=== PATIENT | female | born 2000 | race Caucasian/White ===

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

== ENCOUNTER 2022-03-24 17:39 | Emergency (ER) | payer OTHER, SELFPAY ==
[2022-03-24 17:44] VITALS: BP 123/82; PULSE 83; RESP 18; TEMP 36.8; O2SAT 98; BMI 34.0
[2022-03-24 18:13] VITALS: TEMP 37
--- NOTE | 2022-03-24 18:36 | DI.US.S_ITS ---
PROCEDURE: US PELVIC COMPLETE INDICATIONS: PAIN TECHNIQUE: Real-time scanning was performed of the pelvic organs, with image documentation. Additional endovaginal scanning was necessary due to incomplete visualization of the adnexal and endometrial structures by transabdominal scanning. COMPARISON: [facility], US, US PELVIC COMPLETE, 05/23/2021, 14:11. FINDINGS: Uterus: Uterus is anteverted and normal in size at 7.1 x 3.7 x 4.9 cm. The myometrium is homogeneous. The endometrium measures 8 mm combined thickness. Eighty in expected position in the endometrial canal. Ovaries: The right ovary measures 1.7 x 1.4 x 3.0 cm, with a calculated ovarian volume of 3.7 cc. The left ovary measures 3.3 x 3.4 x 2.0 cm, with a calculated ovarian volume of 12.2 cc. A 2.8 cm simple cyst is seen in the left ovary. Less than 12 follicles can be seen in each ovary. Other: No pathologic free abdominal or pelvic fluid. IMPRESSION: 1. No acute sonographic abnormality in the pelvis. Intrauterine device is seen in expected position. 2. Left ovarian dominant follicle measures 2.8 cm. We strive to produce accurate, complete, and clear reports of imaging services. To assist us in improving patient care, this report was composed using standard report templates and voice recognition software. Therefore, it may contain abnormal punctuation, insertions and/or omissions. Occasional wrong-word or sound-alike substitutions may occur. Though we review the report and make efforts to correct it, we do recommend that the report be read carefully in proper context to recognize any text inaccuracies. Dictated by: Rafael Hook M.D. on 03/24/2022 at 19:48 Approved by: Rafael Hook M.D. on 03/24/2022 at 19:50
--- NOTE | 2022-03-24 18:47 | ED_ITS ---
HPI - Female Genitourinary General Chief complaint: Urogenital-Female Stated complaint: bad pain on rt side, pelvic pain Time Seen by Provider: 03/24/22 18:19 Source: patient Mode of arrival: Ambulatory History of Present Illness HPI Narrative: This is a 22-year-old female with history of endometriosis, she has a IUD in place which is hormonal, history of pelvic pain she sees Dr. Roxana ROGERS for her endometriosis. She presents to the emergency department today for right- sided pelvic pain which has been worsening, she endorses a history of bacterial vaginosis and UTIs, denies any dysuria, states that she has vaginal odor and right-sided pelvic pain with concern for ovarian cyst. She endorses feeling bloated which is consistent with her prior flares of endometriosis. She also has a history of fibromyalgia. States that she takes ibuprofen typically at home for her pain. She denies any vaginal bleeding, states that she does not have a regular menstrual cycle so she does not remember when her last menstrual period was. She has never been , denies any new sexual partners recently or concern for STI. Related Data Home Medications Medication Instructions Recorded Confirmed fluoxetine 20 mg capsule 20 mg PO DAILY 05/23/21 05/23/21 ibuprofen 600 mg tablet 600 mg PO TID PRN Pain (Scale 05/23/21 05/23/21 Score 4-6) Previous Rx's Medication Instructions Recorded hydrocodone 5 mg-acetaminophen 325 1 tab PO Q6H PRN pain #10 tabs 05/23/21 mg tablet ketorolac 10 mg tablet 10 mg PO TID PRN pain 5 days #20 03/24/22 tabs metronidazole 1.3 % (65 mg/5 gram) 1 appful vaginal BEDTIME 1 dose #5 03/24/22 vaginal gel grams metronidazole 500 mg tablet 500 mg PO BID 7 days #14 tabs 03/24/22 Allergies Allergy/AdvReac Type Severity Reaction Status Date / Time Sulfa (Sulfonamide Allergy Rash Verified 03/24/22 17:48 Antibiotics) Review of Systems Review of Systems Narrative: Review of systems is negative for acute abnormalities unless otherwise noted in HPI Patient History alcohol intake frequency: 0-2 drinks per day Last Alcoholic Drink: none Substance Use Type: does not use Exam Narrative Exam Narrative: Reviewed vitals signs and nursing notes. General: cooperative, comfortable, in no acute distress, well groomed HEENT: symmetrical facial expressions, moist mucous membranes Cardiovascular: regular rate and rhythm, no peripheral edema, warm extremities Respiratory: normal effort, able to speak in complete sentences, without wheezing, stridor, or abnormal breath sounds. No retractions or tachypnea. GI: abdomen soft, nontender to palpation, nondistended, without masses, rebound tenderness or exquisite tenderness with exam. Abdomen is distended, nontender to palpation. MSK: moves all extremities, neurovascularly intact, no weakness, normal tone : Mild odor, vaginal discharge is white, thick, she has tenderness to the right ovary with palpation, no tenderness on the left, Skin: brisk capillary refill, without pallor or erythema Neuro: normal speech and cognition, A&O x3, ambulatory, clear speech Psych: mental status is grossly normal, congruent mood, normal affect, pleasant and cooperative Initial Vital Signs Initial Vital Signs: Vital Signs Temperature 98.3 F 03/24/22 17:44 Pulse Rate 83 03/24/22 17:44 Respiratory Rate 18 03/24/22 17:44 Blood Pressure 123/82 03/24/22 17:44 Pulse Oximetry 98 03/24/22 17:44 Oxygen Delivery Method 03/24/22 17:44 Course Orders Ordered: ED Orders 03/24/22 18:09 Chlamydia Gonorrhea PCR -URINE Stat 03/24/22 18:30 Wet Prep Tric BV Kay Stat 03/24/22 18:36 US pelvic complete Stat 03/24/22 19:47 Urine Microscopic Stat Discontinued Medications Hydrocodone Bitart/Acetaminophen (Hydrocodone/Acet 5/325 Tablet) 1 tab PO NOW ONE Stop: 03/24/22 18:37 Last Admin: 03/24/22 18:55 Dose: 1 tab Documented By: ALLAN Ketorolac Tromethamine (Ketorolac 30 Mg/Ml Vial) 30 mg IM NOW ONE Stop: 03/24/22 18:37 Last Admin: 03/24/22 18:55 Dose: 30 mg Documented By: ALLAN Metronidazole (Metronidazole 500 Mg Tablet) 500 mg PO NOW ONE Stop: 03/24/22 19:35 Last Admin: 03/24/22 19:53 Dose: 500 mg Documented By: MAHESH Vital Signs Vital signs: Vital Signs - 8 hr 03/24/22 17:44 03/24/22 18:13 03/24/22 19:53 Temperature 98.3 F 98.6 F Pulse Rate 83 83 Respiratory Rate 18 16 Blood Pressure 123/82 123/87 Pulse Oximetry 98 96 Oxygen Delivery Method Room Air Room Air MDM - Female Genitourinary Lab Data Lab results narrative: [facility] CLIA ID [id number] [address] [place] [address], [id number] RUN DATE: 03/24/22 Specimen Inquiry PAGE 1 RUN TIME: 1906 Name: Candice Burns Age/Sex: 21/F Attend Dr: Staci Colunga D.O. Unit#: [id number] : 2000Location: ED Re05/23/21 Disch: Status: DEP ER SPEC #: [id number] JACKY: 05/23/21 STATUS: COMP REQ #: [id number] SPDESC: RECD: 05/23/[address]: Staci Colunga D.O. SOURCE: Vaginal ENTR: 05/23/[address]: Gustavo Mata MD FAX TO: ORDERED: Wet Prep, GENITAL Cx Procedure Result Verified Site Wet Prep Tric BV Kay Final 05/23/211752 White blood cells Moderate WBCs Clue cells: Few Yeast: None seen Trichomonas: None seen Gram Stain Final 05/24/21- 444 White blood cells No WBC seen Mixed Genital Rasta Mixed Genital Rasta Genital Culture Final 05/26/21- 835 Genital Rasta Light growth - Mixed genital rasta Genital Comment No N.gonorrhea or S.agalactiae isolated Labs: Point of Care Testing Test Results Negative Urine Dip Bedside Urine Glucose Negative Bedside Urine Bilirubin - Negative Bedside Urine Ketone - Negative Urine Specific Guin 1.020 Bedside Urine Occult Blood - Negative Bedside Urine pH 6.0 Bedside Urine Protein - Negative Bedside Urine Urobilinogen - Negative Bedside Urine Nitrite - Negative Bedside Urine Leukocytes - Negative Esterase Imaging Data US - abdomen: Radiologist's Impression: PROCEDURE:? US PELVIC COMPLETE ? INDICATIONS:? PAIN ? TECHNIQUE:? Real-time scanning was performed of the pelvic organs, with image documentation.? Additional endovaginal scanning was necessary due to incomplete visualization of the adnexal and endometrial structures by transabdominal scanning.? ? COMPARISON:? [facility], US, US PELVIC COMPLETE, 05/23/2021, 14:11. ? FINDINGS:? ?? Uterus:? Uterus is anteverted and normal in size at 7.1 x 3.7 x 4.9 cm. The myometrium is homogeneous. ? The endometrium measures 8 mm combined thickness.? Eighty in expected position in the endometrial canal. ? Ovaries:? The right ovary measures 1.7 x 1.4 x 3.0 cm, with a calculated ovarian volume of 3.7 cc. The left ovary measures 3.3 x 3.4 x 2.0 cm, with a calculated ovarian volume of 12.2 cc.? A 2.8 cm simple cyst is seen in the left ovary.? Less than 12 follicles can be seen in each ovary.? ? Other:? No pathologic free abdominal or pelvic fluid. ? ? IMPRESSION:? 1. No acute sonographic abnormality in the pelvis.? Intrauterine device is seen in expected position. 2. Left ovarian dominant follicle measures 2.8 cm.? ? We strive to produce accurate, complete, and clear reports of imaging services. To assist us in improving patient care, this report was composed using standard report templates and voice recognition software. Therefore, it may contain abnormal punctuation, insertions and/or omissions. Occasional wrong-word or sound-alike substitutions may occur. Though we review the report and make efforts to correct it, we do recommend that the report be read carefully in proper context to recognize any text inaccuracies. ? ? Dictated by: Rafael Hook M.D. on 03/24/2022 at 19:48 ? ? Approved by: Rafael Hook M.D. on 03/24/2022 at 19:50 ? MDM Narrative Medical decision making narrative: This is a 22-year-old female presents to the emergency department complaining of right-sided pelvic pain, history of endometriosis, ovarian cyst, bacterial vaginosis and UTIs with a hormonal IUD in place. Today on wet prep her sample was positive for clue cells, her urine sample did not show any signs of infection, urine gonorrhea and chlamydia are pending via PCR. She has a left ovarian cyst on ultrasound, no cyst on the right. Left ovarian dominant follicle measures 2.8 cm, no acute sonographic abnormality in the pelvis, intrauterine device is seen in the expected position. The myometrium is homogeneous, endometrium measures 8 mm combined thickness, less than 12 follicles can be seen any ovary. Patient was given Toradol in the emergency department, discussed clinical treatment of her vaginal odor with [place], she was given 1 dose in the emergency department, encouraged to follow-up with her OBGYN for potentially a pelvic MRI to determine the extensiveness of her endometriosis. Encouraged her to use stool softeners to help reduce her bloating, and ovarian cyst pain. Patient is appropriate and amenable to discharge home. Vital signs are stable on repeat examination is unremarkable. Patient has been informed of results. Patient has been given strict return to ER precautions for any new or worsening symptoms. Patient understands to follow up closely with outpatient providers as instructed. Patient understands plan and agrees to discharge home. All questions and concerns answered at this time. Discharge Plan Departure Patient Disposition: Home Clinical Impression: Endometriosis, Pelvic pain, Bacterial vaginal infection Instructions: Bacterial Vaginosis, DI for Endometriosis, DI for Ovarian Cyst Activity Restrictions/Additional Instructions: *You have been diagnosed with a simple cyst on the left ovary which is not dangerously large, no cyst on the right, the wet mount was positive for bacterial vaginosis, I have given you oral pills to help treat this as well as intravaginal treatment, hopefully between needs to it should take care of this for you. If you have ongoing bloating and lower abdominal pain, please follow- up with Dr. Schmidt for a test of cure and for a retest of your urine. Please use Toradol as needed for your pain, this is a little bit stronger than ibuprofen, take it with food, try to limit quick carbs like sugars and white breads, these can make you feel worse before you feel better. Incorporate MiraLax into your diet if you are having firm stools, you can use it morning and night with any liquid, this can help relieve bloating and pain related to your endometriosis in your bowels. I hope you feel better soon. *What to do: *Please continue to take your regular medications as directed. [ x] New medication prescriptions sent to your pharmacy: [DOD ] [ ] New medication written as a paper prescription [ ] No new medications given *Please follow up with your primary care provider in 2-3 days, call for an appointment. Let them know you were seen in the Emergency Department and that we asked that you be seen for follow-up. We will electronically transmit a record of today's note if your PCP is in our system *If you do not have a primary care provider please contact [phone] to establish care with one of the [facility] primary care providers. *Return to Emergency Department if you should have any new, worsening, or concerning symptoms, such as [fever greater than 101F, chills, worsening pain, persistent vomiting or other bothersome symptoms]. Lissa Schmidt Education Counselor-pantograph operator in [place], [place] Address: [address] [place] [id number] Prescriptions: New ketorolac 10 mg tablet 10 mg PO TID PRN (Reason: pain) 5 Days Qty: 20 0RF metronidazole 1.3 % (65 mg/5 gram) gel 1 appful vaginal BEDTIME Qty: 5 0RF metronidazole 500 mg tablet 500 mg PO BID 7 Days Qty: 14 0RF No Action ibuprofen 600 mg tablet 600 mg PO TID PRN (Reason: Pain (Scale Score 4-6)) fluoxetine 20 mg capsule 20 mg PO DAILY hydrocodone-acetaminophen 5-325 mg tablet 1 tab PO Q6H PRN (Reason: pain) Qty: 10 0RF Referrals: Gustavo Mata MD [Primary Care Provider] - Visit Report Forms: Patient Portal/API
[2022-03-24] MEDS: KETOROLAC 30 MG/ML VIAL IM (18:55)
[2022-03-24] MEDS: HYDROCODONE/ACET 5/325 TABLET 1 TAB PO (18:55)
--- NOTE | 2022-03-24 19:04 | PC.NURSE ---
Has a hx of fibromyalgia and ovarian cysts as well as endometriosis - states that it started today - took tylenol 1gram at 1100 and it helped some but not completely
[2022-03-24 19:53] VITALS: BP 123/87; PULSE 83; RESP 16; O2SAT 96
[2022-03-24] MEDS: metroNIDAZOLE 500 MG TABLET PO (19:53)
[2022-03-24 20:41] LABS: Urine N gonorrhoeae NOT DETECTED
[2022-03-24 20:47] LABS: Urine Chlamydia NOT DETECTED
== END 2022-03-24 20:10 | disposition home or self-care (01) ==
PROVIDERS: Emergency Provider Nurse Practitioner Critical Care Medicine
DX: N80.9 Endometriosis, unspecified (principal); R10.2 Pelvic and perineal pain; N76.0 Acute vaginitis
CPT/HCPCS: 76830; 76856; 81003; 81025; 87210; 87491; 87591; 93975; 96372; 99283; 99284; J1885